=== PATIENT | male | born 1980 | race Caucasian/White ===

== ENCOUNTER 2016-10-19 11:45 | Emergency (ER) | payer OTHER ==
[~2016-10-19] VITALS: Ht 177.8 cm; Wt 96.3 kg
[2016-10-19 11:47] VITALS: BP 117/90; PULSE 90; RESP 17; TEMP 98.4; O2SAT 98
[2016-10-19] MEDS ORDERED: MIDAZOLAM HCL 2 MG/2 ML VIAL IV PUSH ONE (12:15)
[2016-10-19] MEDS ORDERED: GLUCAGON 1 MG/ML VIAL IV PUSH ONE ×2 (12:15→12:30)
[2016-10-19] MEDS ORDERED: PRIL20CA9 PO (12:20)
--- NOTE | 2016-10-19 12:22 | PD ---
HPI . Esophageal foreign body Chief Complaint: Foreign Body Time Seen by Provider: 12:01 Travel History International Travel<30 days: No Contact w/Intl Traveler<30days: No Traveled to known affect area: No History of Present Illness HPI Patient presents with an esophageal foreign body. He's had it since last night. He states that it is pulled pork. He is unable to swallow his own secretions. He states that this is his fourth episode. On review of his records, previous EGD showed esophageal stricture. It was dilated. [id number]: Esophagitis SEVERITY: Severe DURATION: Greater than 12 hours TIMING: Continuous CONTEXT: Food bolus MODIFYING FACTORS: No exacerbating or relieving factors PFSH Past Medical History Bipolar Disorder: Yes Diminished Hearing: No Gastrointestinal Disorders: Yes (acid) Immunizations Current: Yes ?: Not Past Surgical History Pacemaker: No Social History Alcohol Use: Yes (SELDOM) Tobacco Use: Yes (OCCASIONALLY) Substance Use: No Allergies-Medications (Allergen,Severity, Reaction): Coded Allergies: Morphine (Unverified Adverse Reaction, Severe, VOMITING, 10/19/16) Reported Meds & Prescriptions Reported Meds & Active Scripts Active Reported Prilosec (Omeprazole) 20 Mg Cap 20 Mg PO DAILY Review of Systems Except as stated in HPI: all other systems reviewed are Neg Gastrointestinal: Positive: Other (inability to swallow) Physical Exam Narrative GENERAL: Awake and alert. SKIN: Warm and dry. HEAD: Atraumatic. Normocephalic. EYES: Pupils equal and round. ENT: No nasal bleeding or discharge. Mucous membranes pink and moist. NECK: Trachea midline. Neck supple. CARDIOVASCULAR: Regular rate and rhythm. Heart sounds are normal. RESPIRATORY: No accessory muscle use. Lungs are clear. GASTROINTESTINAL: Abdomen soft, non-tender, nondistended. MUSCULOSKELETAL: No obvious deformities. No edema. NEUROLOGICAL: Awake and alert. No obvious cranial nerve deficits. Motor grossly within normal limits. Normal speech. PSYCHIATRIC: Appropriate mood and affect; insight and judgment normal. Data Data Last Documented VS Vital Signs Date Time Temp Pulse Resp B/P Pulse Ox O2 Delivery O2 Flow Rate FiO2 10/19/16 13:18 68 16 132/83 99 Room Air 10/19/16 11:47 98.4 Orders ^ Saline Lock (10/19/16 12:01) Glucagon Inj (Glucagon Inj) (10/19/16 12:15) Fentanyl Inj (Fentanyl Inj) (10/19/16 12:15) Midazolam Inj (Versed Inj) (10/19/16 12:15) Glucagon Inj (Glucagon Inj) (10/19/16 12:30) MDM Medical Decision Making Medical Screen Exam Complete: Yes Emergency Medical Condition: Yes Medical Record Reviewed: Yes (patient has been seen here a few times for this. One time, he was given glucagon and subsequently vomited the food bolus. Another time, he had an EGD.) Differential Diagnosis Differential diagnosis includes partial versus complete esophageal obstruction Narrative Course Patient presents complaining with an esophageal foreign body. He has had it since about 8:00 last night which is about 16 hours. I will try glucagon. I suspect that he will need another EGD. Glucagon seems to have worked. He is now able to tolerate liquids with no foreign body sensation and no regurgitation. Diagnosis Primary Impression: Esophageal foreign body Qualified Code: T18.108A - Esophageal foreign body, initial encounter Referrals: gastroenterology [employer] Patient Instructions: Esophageal Foreign Body (ED), General Instructions Disposition: 01 DISCHARGE HOME Condition: Stable Candy Chen MD Oct 19, 2016 12:22
[2016-10-19 13:18] VITALS: BP 132/83; PULSE 68; RESP 16; O2SAT 99
== END 2016-10-19 13:42 | disposition home or self-care (01) ==
LOC: PHED 11:45
DX: T18.108A Unspecified foreign body in esophagus causing other injury, initial encounter (principal); Z72.0 Tobacco use; X58.XXXA Exposure to other specified factors, initial encounter; Y93.89 Activity, other specified; Y92.9 Unspecified place or not applicable; Y99.8 Other external cause status
CPT/HCPCS: 96374; 99283; J1610

== ENCOUNTER 2017-03-20 11:05 | Emergency (ER) | payer OTHER ==
[~2017-03-20] VITALS: Ht 177.8 cm; Wt 99.1 kg
[~2017-03-20 11:05] MED LIST: PRIL20CA9 PO
[2017-03-20 11:09] VITALS: BP 123/75; PULSE 68; RESP 16; TEMP 98; O2SAT 99
[2017-03-20] MEDS ORDERED: TETANUS/DIPHTHERIA TOXOID ADULT 0.5 ML VIAL IM ONE (11:45)
--- NOTE | 2017-03-20 11:45 | PD ---
HPI Chief Complaint: Injury Time Seen by Provider: 11:30 Travel History International Travel<30 days: No Contact w/Intl Traveler<30days: No Traveled to known affect area: No History of Present Illness HPI 36 year-old right-handed male presents to the emergency room for evaluation of puncture wound to the left hypothenar eminence that occurred just prior to arrival. Patient was using his right hand to drill when the drill slipped and popped into his left hand a few centimeters. States it bled a moderate amount. He ran it under hydrogen peroxide. Patient states pain started radiating from the wound up into his wrist which concerned him so he went to an urgent care center who sent him to the emergency room. Patient states he has no difficulty straightening or bending his hand but if he relaxes it, his fourth and fifth fingers curl in more than normal. Unknown last tetanus. No chronic medical conditions or daily medications. 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 Afebrile. Ambulatory. SKIN: Focused skin assessment warm/dry. There is a 2 mm puncture wound over the hypothenar eminence that is not bleeding. No streaking or erythema. HEAD: Normocephalic. EYES: No scleral icterus. No injection or drainage. NECK: Supple, trachea midline. No JVD or lymphadenopathy. CARDIOVASCULAR: Regular rate and rhythm without murmurs, gallops, or rubs. RESPIRATORY: Breath sounds equal bilaterally. No accessory muscle use. MUSCULOSKELETAL: No cyanosis. Mild edema over the hypothenar eminence of the left hand. Less than 2 second capillary refill distally. Full range of motion of the left hand. Distal sensation intact. Strength 5/5 and equal in all fingers. Data Data Last Documented VS Vital Signs Date Time Temp Pulse Resp B/P Pulse Ox O2 Delivery O2 Flow Rate FiO2 03/20/17 11:09 98.0 68 16 123/75 99 Orders Tetanus/Diphtheria Tox Adult (Tetanus/Di (03/20/17 11:45) Hand, Limited (2vws) (03/20/17 ) [facility] Medical Decision Making Medical Screen Exam Complete: Yes Emergency Medical Condition: Yes Medical Record Reviewed: Yes Differential Diagnosis Puncture wound, tetanus prophylaxis, tendon injury, nerve injury Narrative Course 36-year-old male presents to the emergency room for evaluation of a puncture wound to his left hand that occurred just prior to arrival. Patient accidentally drilled a bit into his hand on his right hand slipped. Physical exam reveals a 2 mm puncture wound over the hypothenar eminence that is not bleeding. No significant edema or streaking. Less than 2 second capillary refill distally. Full range of motion of the left hand. Distal sensation intact. Strength 5/5 and equal in all fingers. Patient was updated on tetanus. X-ray reveals no bony abnormality. Patient was encouraged to follow up with a hand surgeon if symptoms persist or return for worsening symptoms. He understands and agrees to plan. Diagnosis Primary Impression: Puncture wound of left hand Qualified Code: S61.432A - Puncture wound of left hand without foreign body, initial encounter Referrals: Kev Bedoya III, MD Hand Surgeon Patient Instructions: General Instructions, Puncture Wound (ED) Additional Instructions: Rest and drink plenty of fluids. If you develop redness, drainage, streaking, or increased pain, start antibiotics. Follow up with a primary care physician. Return to emergency room for worsening symptoms, as discussed. Med/Other Pt SpecificInfo: Prescription(s) given Scripts No Active Prescriptions or Reported Meds Disposition: 01 DISCHARGE HOME Condition: Stable Margaux Mcnamara Mar 20, 2017 11:45
--- NOTE | 2017-03-20 11:55 | RADRPT ---
EXAM DATE/TIME: 03/20/2017 11:40 [facility] COMPARISON: No previous studies available for comparison. INDICATIONS : Puncture wound to palmar surface of left hand with a drill bit. MEDICAL HISTORY : Gastroesophageal reflux disease. Esophageal strictures SURGICAL HISTORY : Esophageal dilitations. ENCOUNTER: Initial ACUITY: 1 day PAIN SCORE: 7/10 LOCATION: Left palmar surface FINDINGS: Two view examination of the left hand demonstrates no acute dislocation or fracture. There soft tiss ue swelling over the thenar eminence. There is no radiopaque foreign body. The joint spaces are maint ained. Bony mineralization is normal. CONCLUSION: Soft tissue swelling with no radiopaque foreign body. Parker Cordova MD on March 20, 2017 at 11:53 Board Certified Radiologist. This report was verified electronically.
[2017-03-20] MEDS ORDERED: CEPH-460 PO (12:15)
== END 2017-03-20 12:29 | disposition home or self-care (01) ==
LOC: PHEFT 11:05
DX: S61.432A Puncture wound without foreign body of left hand, initial encounter (principal); W29.8XXA Contact with other powered hand tools and household machinery, initial encounter; Z23 Encounter for immunization
CPT/HCPCS: 73120; 90471; 90714